=== PATIENT | female | born 1985 | race Caucasian/White ===

== ENCOUNTER 2016-08-17 19:24 | Emergency (ER) | payer SELFPAY ==
[2016-08-17] MEDS ORDERED: Tetan/Diph/Pertus SYR(Tdap)* 0.5 ML SYR(BOOSTRIX) use SYR IM ONE (21:05)
--- NOTE | 2016-08-17 21:27 | ED ---
Bite Injury/Animal - HPI Summary HPI Summary: 30F presents with racoon bite to right wrist. Racliv was in the house and she was trying to get it out. It was corned so it scratched and bite her on the right wrist. She does not know when her last tetanus was. She did clean the wound out. She has many allergies to medication. She denies any signs of infection. She denies any fever. - History of Current Complaint Chief Complaint: EDAnimalBite Stated Complaint: BIT BY RACCOON Time Seen by Provider: 08/17/16 20:08 Pain Intensity: 5 - Allergies/Home Medications Allergies/Adverse Reactions: Allergies Allergy/AdvReac Type Severity Reaction Status Date / Time Amoxicillin Allergy Unknown Verified 08/17/16 19:30 Reaction Details Azithromycin [From Zithromax] Allergy Hives Verified 08/17/16 19:30 Cephalosporins Allergy Hives Verified 08/17/16 19:30 Penicillins Allergy Unknown Verified 08/17/16 19:30 Reaction Details Sulfa Antibiotics Allergy Hives Verified 08/17/16 19:30 PMH/Surg Hx/FS Hx/Imm Hx Endocrine/Hematology History: Denies: Hx Anticoagulant Therapy Cardiovascular History: Denies: Hx Hypertension Infectious Disease History: No Infectious Disease History: Denies: Traveled Outside the [place] in Last 30 Days - Family History Known Family History: Positive: Cardiac Disease - Social History Alcohol Use: None Substance Use Type: Reports: None Smoking Status (MU): Never Smoked Tobacco Review of Systems Negative: Fever Negative: Chest Pain Negative: Shortness Of Breath Positive: Other - raccoon bite All Other Systems Reviewed And Are Negative: Yes Physical Exam Triage Information Reviewed: Yes Vital Signs On Initial Exam: Initial Vitals Temp Pulse Resp BP Pulse Ox 98.6 F 86 14 126/76 100 08/17/16 19:27 08/17/16 19:27 08/17/16 19:27 08/17/16 19:27 08/17/16 19:27 Vital Signs Reviewed: Yes Appearance: Positive: Well-Appearing Skin: Positive: Warm, Dry, Other - bite on right wrist, scratch on right wrist Head/Face: Positive: Normal Head/Face Inspection Eyes: Positive: Normal, Conjunctiva Clear Respiratory/Lung Sounds: Positive: Clear to Auscultation, Breath Sounds Present Cardiovascular: Positive: Normal, RRR Musculoskeletal: Positive: Strength/ROM Intact - right wrist, Other - good pulses Diagnostics - Vital Signs Vital Signs Temp Pulse Resp BP Pulse Ox 08/17/16 19:27 98.6 F 86 14 126/76 100 - Laboratory Lab Statement: Any lab studies that have been ordered have been reviewed, and results considered in the medical decision making process. Bite Injury Course/Dx - Course Course Of Treatment: 30F presents with racoon bite to right wrist. Levy was in the house and she was trying to get it out. It was corned so it scratched and bite her on the right wrist. She does not know when her last tetanus was. She did clean the wound out. She has many allergies to medication. She denies any signs of infection. She denies any fever. gave immunoglobulin in wound as [facility] recommended. gave rabies vaccine and tetanus. prescribed doxcycline. cleaned wound also and warned if signs of infection to return. patient understands and agrees with plan - Diagnoses Differential Diagnosis/HQI/PQRI: Positive: Puncture, Rabies Exposure, Superficial Infection Provider Diagnosis: Raccoon bite Discharge - Discharge Plan Condition: Good Disposition: HOME Prescriptions: DOXYcycline CAP(*) [DOXYcycline 100MG CAP(*)] 100 mg PO BID #9 cap Patient Education Materials: Animal Bite (ED) Referrals: No Primary Care Phys,NOPCP [Primary Care Provider] - Additional Instructions: Take doxycycline twice a day for 5 days, first dose given in ED Take with food and wear sunscreen Follow up with health department Return to ED if develop any fever or spreading redness or any new or worsening symptoms
[2016-08-17] MEDS ORDERED: Rabies Vaccine, PCEC INJ* 1 ml IM ONE (21:35)
[2016-08-17] MEDS ORDERED: Rabies Immune Globulin 10 ML* 150 UNIT/ML VIAL IM ONE (21:36)
[2016-08-17] MEDS ORDERED: DOXYcycline CAP(*) 100 MG PO ONE (22:08)
[2016-08-17 22:36] VITALS: BP 122/78
== END 2016-08-17 23:09 | disposition home or self-care (01) ==
LOC: ED 19:24
DX: S61.551A Open bite of right wrist, initial encounter (principal); W55.51XA Bitten by raccoon, initial encounter; Y93.89 Activity, other specified; Y92.9 Unspecified place or not applicable
CPT/HCPCS: 90375; 90471; 90675; 90715; 99282; A9270-GY